=== PATIENT | female | born 1985 | race Two or more races ===

== ENCOUNTER 2023-05-04 16:35 | Emergency (ER) | payer OTHER ==
[~2023-05-04] VITALS: Ht 160 cm; Wt 74.8 kg
[~2023-05-04 16:35] MED LIST: CIPRO500 MG PO; DOLOGEN CAPLET1 EACH PO; PYRIDIUM200 MG PO
== END 2023-05-04 18:20 | disposition home or self-care (01) ==
LOC: ER 16:36
DX: M54.9 Dorsalgia, unspecified (principal)

== ENCOUNTER 2023-10-11 15:43 | Emergency (ER) | payer OTHER ==
[~2023-10-11] VITALS: Ht 160 cm; Wt 72.1 kg
[2023-10-11] MEDS ORDERED: KETOROLAC TROMETHAMINE 60 MG VIAL IM ONE (17:00)
[2023-10-11] MEDS ORDERED: ORPHENADRINE CITRATE 30 MG/ML AMPUL IM ONE (17:00)
[2023-10-11] MEDS ORDERED: NORFLEX100MG PO (18:26)
[2023-10-11] MEDS ORDERED: KETO10TA2 PO (18:26)
== END 2023-10-11 18:49 | disposition home or self-care (01) ==
LOC: ER 15:43
DX: M62.830 Muscle spasm of back (principal); M54.50 Low back pain, unspecified